=== PATIENT | male | born 1980 | race American Indian/Alaskan Native ===

== ENCOUNTER 2020-03-01 06:48 | Emergency (ER) | payer SELFPAY ==
[2020-03-01] MEDS ORDERED: ASPIRIN 325 MG TAB PO ONE (07:01)
[2020-03-01 07:04] VITALS: BP 139/90
--- NOTE | 2020-03-01 07:48 | XRay Report ---
CHEST 2 VIEWS INDICATION: Chest Pain. COMPARISON: None FINDINGS: Support devices: None. Heart: Within normal limits. Lungs/pleura: No acute air space or interstitial disease. No pneumothorax. Additional findings: None. IMPRESSION: No acute findings. Signer Name: Moreno Eisenberg Jr, MD Signed: 03/01/2020 7:43 AM Workstation Name: [id number]
[2020-03-01 07:51] LABS: BUN/Creatinine Ratio 15; Blood Urea Nitrogen 19 mg/dL (9-20); Calcium 8.4 mg/dL (8.4-10.2); Hemolysis Index 5
[2020-03-01 08:31] LABS: Monocytes # (Auto) 0.7 K/mm3 (0.0-0.8); Monocytes % (Auto) 12.5 % (0.0-7.3)
--- NOTE | 2020-03-01 08:32 | Emergency Department Report ---
ED General Adult HPI - General Chief complaint: Chest Pain Stated complaint: GROIN PAIN REDNESS/LEFT EARACHE/POSITIVE COVID Time Seen by Provider: 03/01/20 08:05 Source: patient Mode of arrival: Ambulatory Limitations: No Limitations - History of Present Illness Initial comments: This is a 39-year old man who is seen at [facility] for the same complaints. He had a positive COVID test he states. He is here today stating that he was partially compliant with the prescriptions that he was given at [facility]. He is concerned about the cost of prescriptions. He is not complaining of chest pain or shortness of breath. He is not complaining of earache or sinus drainage. -: Gradual, days(s) Quality: aching (Minimal aching associated with apparent scrotal abscess) Consistency: intermittent, now resolved Improves with: none Associated Symptoms: denies other symptoms - Related Data Previous Rx's Medication Instructions Recorded Last Taken Type Sulfamethoxazole/Trimethoprim 1 each PO BID #20 tablet 03/01/20 Unknown Rx [Bactrim DS TAB] metFORMIN [Glucophage] 500 mg PO BID #60 tablet 03/01/20 Unknown Rx Allergies Allergy/AdvReac Type Severity Reaction Status Date / Time ibuprofen [From Advil] Allergy Unknown Verified 03/01/20 07:01 ED Review of Systems ROS: Stated complaint: GROIN PAIN REDNESS/LEFT EARACHE/POSITIVE COVID Other details as noted in HPI Constitutional: denies: chills, fever Eyes: denies: eye pain, vision change ENT: denies: ear pain, throat pain Respiratory: denies: cough, shortness of breath, wheezing Cardiovascular: denies: chest pain, palpitations Endocrine: no symptoms reported Gastrointestinal: denies: abdominal pain, nausea, diarrhea Genitourinary: as per HPI. denies: urgency, dysuria Musculoskeletal: denies: back pain, arthralgia Skin: denies: rash, lesions Neurological: denies: headache, weakness, paresthesias Psychiatric: denies: anxiety, depression Hematological/Lymphatic: denies: easy bleeding, easy bruising ED Past Medical Hx - Past Medical History Previous Medical History?: Yes Hx Hypertension: Yes Hx Diabetes: Yes Additional medical history: high cholesteral - Surgical History Past Surgical History?: Yes Additional Surgical History: buttock - Social History Smoking Status: Former Smoker Substance Use Type: Alcohol - Medications Home Medications: Home Medications Medication Instructions Recorded Confirmed Last Taken Type Sulfamethoxazole/Trimethoprim 1 each PO BID #20 tablet 03/01/20 Unknown Rx [Bactrim DS TAB] metFORMIN [Glucophage] 500 mg PO BID #60 tablet 03/01/20 Unknown Rx ED Physical Exam - General Limitations: No Limitations General appearance: alert, in no apparent distress - Head Head exam: Present: atraumatic, normocephalic - Eye Eye exam: Present: normal appearance. Absent: scleral icterus - ENT ENT exam: Present: mucous membranes moist - Neck Neck exam: Present: normal inspection. Absent: tenderness, meningismus - Respiratory Respiratory exam: Present: normal lung sounds bilaterally. Absent: respiratory distress - Cardiovascular Cardiovascular Exam: Present: regular rate, normal rhythm. Absent: systolic murmur, diastolic murmur, rubs, gallop - GI/Abdominal GI/Abdominal exam: Present: soft, normal bowel sounds. Absent: distended, tenderness, guarding, rebound, rigid - Rectal Rectal exam: Present: deferred - exam: Present: other (Patient does have an early right scrotal abscess which is nonfluctuant nondraining and red. Testes are normal.) - Extremities Exam Extremities exam: Present: normal inspection - Back Exam Back exam: Present: normal inspection - Neurological Exam Neurological exam: Present: alert, oriented X3, CN II-XII intact. Absent: motor sensory deficit - Psychiatric Psychiatric exam: Present: normal affect, normal mood - Skin Skin exam: Present: warm, dry, intact, normal color. Absent: rash ED Course Vital Signs 03/01/20 06:57 Temperature 99.4 F Pulse Rate 90 Respiratory 18 Rate Blood Pressure 139/90 O2 Sat by Pulse 100 Oximetry - Reevaluation(s) Reevaluation #1: Patient will be given ceftriaxone IM and a prescription for Bactrim. Apparently he is a type II diabetic. He will be given a prescription for Metformin. He is referred to [facility] and/or [facility] [facility] for follow-up. He does not meet criteria for I&D or for admission. 03/01/20 09:20 ED Medical Decision Making - Lab Data Result diagrams: 03/01/20 07:05 03/01/20 07:05 Laboratory Results - last 24 hr 03/01/20 03/01/20 07:05 07:05 [place] % (Auto) 12.5 H Eos % (Auto) 0.0 [place] # (Auto) 0.7 Eos # (Auto) 0.0 Baso # (Auto) 0.0 Seg Neutrophils % 73.4 H Seg Neutrophils # 4.0 Sodium 132 L Potassium 4.2 Chloride 93.7 L Carbon Dioxide 26 Anion Gap 17 BUN 19 Creatinine 1.3 Estimated GFR > 60 BUN/Creatinine Ratio 15 Glucose 259 H Calcium 8.4 Troponin T < 0.010 Critical care attestation.: If time is entered above; I have spent that time in minutes in the direct care of this critically ill patient, excluding procedure time. ED Disposition Clinical Impression: Abscess of scrotal wall Hyperglycemia due to type 2 diabetes mellitus Qualifiers: Diabetes mellitus skilled nursing insulin use: unspecified manager intermediate insulin use status Qualified Code(s): E11.65 - Type 2 diabetes mellitus with hyperglycemia Disposition: TO HOME OR SELFCARE Is pt being admited?: No Does the pt Need Aspirin: No Condition: Stable Instructions: Diabetes Mellitus Type 2 in Adults (ED), Abscess (ED) Additional Instructions: There is an infection in your genital area. He generally will respond to antibiotics. However it can worsen and could require drainage particularly if you are noncompliant with the prescription for antibiotics. It appears you already given a prescription at [facility] for the same thing. Your blood sugar is elevated consistent with diabetes. You will be given a prescription for that. The antibiotic I am prescribing should be cheap or free at [facility] for example Prescriptions: Sulfamethoxazole/Trimethoprim [Bactrim DS TAB] 1 each PO BID #20 tablet metFORMIN [Glucophage] 500 mg PO BID #60 tablet Referrals: PRIMARY CARE [Primary Care Provider] - 3-5 Days [facility] [Provider Group] - 2-3 Days
[2020-03-01 08:36] LABS: Basophils % (Auto) 0.4 % (0.0-1.8); Hematocrit 31.1 % (35.5-45.6); Hemoglobin 10.5 gm/dl (11.8-15.2); Lymphocytes # (Auto) 0.7 K/mm3 (1.2-5.4); Lymphocytes % (Auto) 13.7 % (13.4-35.0); Mean Corpuscular HGB Conc 34 % (32-34); Mean Corpuscular Volume 89 fl (84-94); Platelet Count 295 K/mm3 (140-440); Red Blood Count 3.51 M/mm3 (3.65-5.03); Red Cell Distribution Width 13.1 % (13.2-15.2)
[2020-03-01] MEDS ORDERED: LIDOCAINE-MPF (1%) 10 MG/1 ML VIAL 5 ML INFILTRATI ONE (09:23)
== END 2020-03-01 10:02 | disposition home or self-care (01) ==
LOC: ED 06:48
DX: E11.65 Type 2 diabetes mellitus with hyperglycemia (principal); N49.2 Inflammatory disorders of scrotum; I10 Essential (primary) hypertension; E78.00 Pure hypercholesterolemia, unspecified; Z79.899 Other long term (current) drug therapy; Z88.6 Allergy status to analgesic agent; Z87.891 Personal history of nicotine dependence; Z98.890 Other specified postprocedural states
CPT/HCPCS: 36415; 71046; 80048; 84484; 85025; 93005; 96372; 99284; J0696